=== PATIENT | female | born 1965 | race Two or more races ===

== ENCOUNTER → 2016-05-18 | Outpatient (CLI) | payer OTHER | END | disposition home or self-care (01) | LOC: HKI 10:25 | PROVIDERS: ATTEND Orthopaedic Surgery | DX: M25.562 Pain in left knee (principal) | CPT/HCPCS: 20610; J1030; Z7500; Z7610; G0463 ==

== ENCOUNTER 2016-05-19 11:58 | Day surgery (SDC) | payer MEDICAID, OTHER ==
[2016-05-19] VITALS (13 sets, daily range): BP systolic 109–137; BP diastolic 61–78; PULSE 59–78; RESP 16–18; Ht 165.1 cm; Wt 112.1 kg
[~2016-05-19] VITALS: Ht 165.1 cm; Wt 112.1 kg
[2016-05-19] MEDS ORDERED: CEFAZOLIN 2 GM/50 ML (PMX) 50 ML IVPB ONE (12:00)
[2016-05-19 13:13] LABS: BASOPHIL # 0.2 10^3/ul (0.0-0.1); BASOPHILS % 1.3 % (0.0-2.0); CONDITION 1; EOSINOPHILS % 0.1 % (0.0-7.0); HEMATOCRIT 40.4 % (37.0-47.0); HEMOGLOBIN 13.7 g/dl (12.0-16.0); LYMPHOCYTES # 1.3 10^3/ul (0.8-2.9); LYMPHOCYTES % 8.2 % (15.0-51.0); MEAN CORPUSCULAR HEMOGLOBIN 30.3 pg (29.0-33.0); MEAN CORPUSCULAR HGB CONC 33.9 g/dl (32.0-37.0); MEAN CORPUSCULAR VOLUME 89.3 fl (82.0-101.0); MEAN PLATELET VOLUME 8.9 fl (7.4-10.4); MONOCYTE # 0.8 10^3/ul (0.3-0.9); NEUTROPHIL # 13.9 10^3/ul (1.6-7.5); NEUTROPHILS % 85.4 % (39.0-77.0); PLATELET COUNT 233 10^3/UL (140-440); RED BLOOD COUNT 4.52 10^6/ul (4.20-5.40); RED CELL DISTRIBUTION WIDTH 13.1 % (11.5-14.5); UNCORRECTED WBC 16.3 10^3/ul (4.8-10.8); WHITE BLOOD COUNT 16.3 10^3/ul (4.8-10.8)
[2016-05-19 13:21] LABS: INR 0.91; PROTIME 12.3 Sec (12.2-14.2)
--- NOTE | 2016-05-19 13:25 | RADRPT ---
PROCEDURE: Chest Radiograph. CLINICAL INDICATION: Preop TECHNIQUE: 2 frontal views of the chest COMPARISON: None available FINDINGS: The cardiomediastinal silhouette is within normal limits. No infiltrate or effusion is seen. Th e bones are intact. IMPRESSION: 1. Unremarkable chest radiograph. RPTAT: KK .Kofi Escalante MD, MD Date Time Electronically viewed and signed by .Kofi Escalante MD, on 05/19/2016 13:25 .B/
[2016-05-19 13:26] LABS: POTASSIUM 3.9 mmol/L (3.5-5.1)
[2016-05-19 13:27] LABS: CALCIUM 9.5 mg/dl (8.4-10.2); CREATININE 0.52 mg/dl (0.44-1.00)
[2016-05-19 13:51] LABS: PARTIAL THROMBOPLASTIN TIME 24.5 Sec (25.0-35.0)
[2016-05-19] MEDS ORDERED: BUPIVACAINE 0.25% (MPF) 30 ML INJ ONE ×2 (14:57→14:58)
[2016-05-19] MEDS ORDERED: PROPOFOL 20 ML ONE (15:04)
[2016-05-19] MEDS ORDERED: SUCCINYLCHOLINE CHLORIDE 100 MG/5 ML SYG IV ONE (15:04)
[2016-05-19] MEDS ORDERED: MIDAZOLAM 1 MG/ML 2 ML INJ ONE (15:04)
[2016-05-19] MEDS ORDERED: FENTAnyl 50 MCG/ML VIAL ONE ×2 (15:05→15:23)
[2016-05-19] MEDS ORDERED: CEFAZOLIN 1 GM INJ ONE (15:17)
[2016-05-19] MEDS ORDERED: ONDANSETRON 4 MG INJ ONE (15:17)
[2016-05-19] MEDS ORDERED: DEXAMETHASONE 4 MG/ML 1 ML INJ ONE (15:18)
[2016-05-19] MEDS ORDERED: ROCURONIUM 50 MG INJ ONE (15:18)
[2016-05-19] MEDS: SOD CHLORIDE 0.9% 1,000 ML IV SCH ×2 (15:43→16:00)
[2016-05-19] MEDS ORDERED: GLYCOPYRROLATE 0.4 MG INJ ONE ×2 (15:46→15:47)
[2016-05-19] MEDS ORDERED: NEOSTIGMINE 3 MG/3 ML SYRINGE ONE ×2 (15:46→15:47)
[2016-05-19] MEDS ORDERED: HYDROCODONE/APAP (5/325) TAB PO ONE (16:00)
[2016-05-19] MEDS ORDERED: MEPERIDINE 25 MG INJ IV PRN (16:00)
[2016-05-19] MEDS ORDERED: ONDANSETRON 4 MG INJ IV PRN (16:00)
[2016-05-19] MEDS ORDERED: HYDROmorphONE (0.2 MG/ML) 10ML SYG IV PRN ×2 (16:00)
--- NOTE | 2016-05-19 16:21 | OPR ---
DATE OF OPERATION: 05/19/2016 INDICATION: This is a 50-year-old female with symptomatic gallstones. She requests surgical excisi on of her gallbladder. Risks, alternatives, benefits and personnel were discussed with the patient. Patient expressed understanding and consents to the operation. PREOPERATIVE DIAGNOSIS: Symptomatic gallstones. POSTOPERATIVE DIAGNOSIS: Symptomatic gallstones. OPERATION: Laparoscopic cholecystectomy. SURGEON: Tonio Linder MD TRANSFORMATION LEAD: Madhavi Grayson MD SPECIMENS: Gallbladder. COMPLICATIONS: None. ANESTHESIA: General. PROCEDURE: The patient was taken to the OR and prepped and draped in the usual sterile fashion. Singh rgical timeout was performed. IV antibiotics were given. Infraumbilical incision was made transver sely with a 15 blade. Dissection cautery was carried down to the fascia which was divided with curv ed Patrick scissors, 0 Vicryl U-stitch was placed in the fascia. Balloon Lola trocar was introduced. Pneumoperitoneum established. Midepigastric 12 mm optic trocar right upper quadrant, right upper flank 5 mm optical trocars are placed under direct visualization. Upon initial inspection there wer e some adhesions to the gallbladder which was taken down bluntly. The cystic duct was identified. The critical view was established. The cystic duct was divided using a 35 mm Endo-YSAMANI vascular load stapler. The cystic artery was also encompassed with the stapler. The gallbladder was taken off t he gallbladder bed. There was good hemostasis. Gallbladder was retrieved using EndoCatch bag. Por ts were removed under direct visualization, 0 Vicryl U-stitch was tied down. Skin was closed using skin shantel. Local anesthesia injected. Dry dressings were applied. Dictated By: TONIO MA/RUFINO Conf#: [id number] DID#: [id number]
--- NOTE | 2016-05-20 12:16 | RADRPT ---
Vent Rate: 62 bpm RR Interval: 0 msec [place] Interval: 192 msec QRS Duration: 88 msec QT Interval: 426 msec QTC Interval: 432 msec P-R-T [place]: 52 - 29 - 45 degrees Normal sinus rhythm Normal ECG Electronically Signed By: Himanshu [place] [id number]
== END 2016-05-19 17:33 | disposition home or self-care (01) ==
LOC: SDS 11:58
PROVIDERS: ATTEND Surgery
DX: K80.10 Calculus of gallbladder with chronic cholecystitis without obstruction (principal)
CPT/HCPCS: 47562; 71010; 80048; 85025; 85610; 85730; 88304; 93005; J0330; J0690; J1100; J1170; J2175; J2250; J2405; J2710; J3010; Z7512; Z7610

== ENCOUNTER 2017-03-18 22:25 | Emergency (ER) | payer OTHER ==
[~2017-03-18] VITALS: Ht 165.1 cm; Wt 120.0 kg
[2017-03-18 22:30] VITALS: Ht 165.1 cm; Wt 120.0 kg
== END 2017-03-19 01:33 | disposition left against medical advice (07) ==
LOC: FTE 22:25
DX: Z53.21 Procedure and treatment not carried out due to patient leaving prior to being seen by health care provider (principal)

== ENCOUNTER 2017-11-13 11:16 | Inpatient (IN) | END 2017-11-29 14:11 | disposition home health service (06) | DRG 755 ==

== ENCOUNTER 2017-12-01 11:39 | Emergency (ER) | END 2017-12-01 16:51 | disposition home or self-care (01) ==

== ENCOUNTER 2018-05-30 16:51 | Emergency (ER) | payer SELFPAY ==
[~2018-05-30] VITALS: Wt 106.9 kg
[~2018-05-30 16:51] MED LIST: DOCU-216 PO; LORA1TAB PO; OXYC-431 PO; PANT40TA4 PO; UDMOM PO; [UNRECOGNIZED DRUG - CODE] PO
[2018-05-30 16:54] VITALS: BP 129/73; PULSE 116; RESP 19
== END 2018-05-30 19:15 | disposition left against medical advice (07) ==
LOC: E/R 16:51
DX: Z53.21 Procedure and treatment not carried out due to patient leaving prior to being seen by health care provider (principal)

== ENCOUNTER 2019-01-31 14:44 | Emergency (ER) | payer OTHER ==
[~2019-01-31] VITALS: Ht 165.1 cm; Wt 85.0 kg
[2019-01-31 14:59] VITALS: BP 139/80; PULSE 80; RESP 16; Ht 165.1 cm; Wt 85.0 kg
[2019-01-31] MEDS ORDERED: LORAZEPAM 0.5 MG TAB PO ONE (15:00)
== END 2019-01-31 15:45 | disposition home or self-care (01) ==
LOC: E/R 14:44
DX: F41.9 Anxiety disorder, unspecified (principal); R20.2 Paresthesia of skin; Z85.3 Personal history of malignant neoplasm of breast
CPT/HCPCS: Z7502; Z7610; 99283